=== PATIENT | female | born 1995 | race Caucasian/White ===

== ENCOUNTER 2018-11-14 16:40 | Inpatient (IN) | payer OTHER ==
[2018-11-14] MEDS ORDERED: PENICILLIN G POTASSIUM 5,000,000 UNIT in DEXTROSE 5%-WATER 100 ML IV ONE (16:53)
[2018-11-14 17:41] LABS: ABSOLUTE EOSINOPHILS # (AUTO) 0.1 10^3/uL (0.0-0.6); ABSOLUTE MONOCYTES (AUTO) 0.6 10^3/uL (0.1-1.4); ABSOLUTE NEUT (AUTO) 7.5 10^3/uL (1.7-8.2); BASOPHILS % (AUTO) 0.4 % (0-2); EOSINOPHILS % (AUTO) 1.2 % (0-6); HEMATOCRIT 34.2 % (36.0-47.0); HEMOGLOBIN 11.6 g/dL (12.0-15.5); LYMPHOCYTES % (AUTO) 19.7 % (13-45); MEAN CORPUSCULAR HEMOGLOBIN 29.3 pg (27.0-33.4); MEAN CORPUSCULAR VOLUME 86 fl (80-97); MONOCYTES % (AUTO) 5.9 % (3-13); PLATELET COUNT 291 10^3/uL (150-450); RED BLOOD COUNT 3.96 10^6/uL (3.72-5.28); RED CELL DISTRIBUTION WIDTH 17.7 % (11.5-14.0); SEGMENTED NEUTROPHILS % (AUTO) 72.8 % (42-78); TOTAL CELLS COUNTED % (AUTO) 100 %; WHITE BLOOD COUNT 10.3 10^3/uL (4.0-10.5)
[2018-11-14 17:48] LABS: APPEARANCE,URINE CLOUDY; BILIRUBIN,URINE NEGATIVE (NEGATIVE); COLOR,URINE AMBER; GLUCOSE, URINE NEGATIVE (NEGATIVE); KETONES,URINE TRACE mg/dL (NEGATIVE); LEUKOCYTE ESTERASE,URINE MODERATE (NEGATIVE); NITRITE,URINE NEGATIVE (NEGATIVE); PROTEIN,URINE 30 mg/dL (NEGATIVE); URINE SPECIFIC GRAVITY 1.019
[2018-11-14] MEDS ORDERED: PENICILLIN G-K 5 MILLION UNIT VIAL ONE ×2 (17:52→21:57)
[2018-11-14 18:03] LABS: URINE AMPHETAMINES SCREEN NEGATIVE; URINE BARBITURATES SCREEN NEGATIVE; URINE BENZODIAZEPINES SCREEN NEGATIVE; URINE COCAINE SCREEN NEGATIVE; URINE MARIJUANA (THC) SCREEN NEGATIVE; URINE METHADONE SCREEN NEGATIVE; URINE PHENCYCLIDINE SCREEN NEGATIVE
[2018-11-14] MEDS: RINGERS SOLUTION,LACTATED 1,000 ML IV PRN ×2 (18:09→22:19)
[2018-11-14] MEDS ORDERED: OXYTOCIN/NORMAL SALINE 20 UNIT/1,000 ML RTUINJ IV PRN (18:36)
[2018-11-14] MEDS ORDERED: MISOPROSTOL 0.2 MG TABLET ONE (18:38)
[2018-11-14] MEDS ORDERED: LIDOCAINE 1% INJ-PF (10 MG/ML) 30 ML SDV ONE (18:38)
[2018-11-14] MEDS ORDERED: OXYTOCIN/NORMAL SALINE 20 UNIT/1,000 ML RTUINJ ONE (18:38)
--- NOTE | 2018-11-14 20:21 | Admission Physical ---
Datetime Report Generated by CPN: 11/14/2018 20:21 CURRENT ADMISSION Chief Complaint Other: Premature Rupture of Membranes 24 hrs ago Indication for Induction: Not Applicable Admit Impression : Term, Intrauterine ; No Active Labor; Ruptured Membranes Admit Plan: Admit to Unit; Initiate Labor Augmentation Protocol ALLERGIES Medication Allergies: No Medication Allergies: No Known Allergies (11/14/2018) Latex: No Latex Allergies Food Allergies: none Environmental Allergies: none OBSTETRICAL HISTORY EDC: 11/13/2018 00:00 : 1 Para: 0 Gestational Diabetes: No Rh Sensitization: No Incompetent Cervix: No GRANT: No Infertility: No ART Treatment: No Uterine Anomaly: No IUGR: No Hx Previous C/S: No Macrosomia: No Hx Loss/Stillborn: No PIH: No Hx : No Placenta Previa/Abruption: No Depression/PP Depression: No PTL/PROM: No Post Hemorrhage: No Current Procedures: Ultrasound Obstetrical History Comments: G1- current SEE RECORDS Alcohol: No Marijuana : No Cocaine: No Other Illicit Drugs: No Cigarettes: Never Smoker. [id number] MEDICAL HISTORY Diabetes: No Blood Transfusion: No Pulmonary Disease (Asthma, TB): No Breast Disease: No Hypertension: No Billet Checker Surgery: No Heart Disease: No Hosp/Surgery: Yes Autoimmune Disorder: No Anesthetic Complications: No Kidney Disease: No Abnormal Pap Smear: No Neuro/Epilepsy: No Psychiatric Disorders: Yes Other Medical Diseases: No Hepatitis/Liver Disease: No Significant Family History: No Varicosities/Phlebitis: No Trauma/Violence : No Thyroid Dysfunction: Yes Medical History Comments: hypothyroidism- synthroid, gastric sleeve, T_A, wisdoms, obesity, anemia INFECTIOUS HISTORY Gonorrhea: No Genital Herpes: No Chlamydia: No Tuberculosis: No Syphilis: No Hepatitis: No HIV/AIDS Exposure: No Rash or Viral Illness: No HPV: No PHYSICAL EXAM General: Normal HEENT: Normal Neurologic: Normal Thyroid: Normal Heart: Normal Lungs: Normal Breast: Normal Back: Normal Abdomen: Normal Genitourinary Exam: Normal Extremities: Normal DTRs: Normal Pelvic Type: Adequate Vital Signs: Reviewed; Within Normal Limits VAGINAL EXAM Dilatation: 2 Effacement: thick Station: -3 Contraction Comments: irregular MEMBRANES Membranes: Ruptured Amniotic Fluid Color: Clear FETUS A Monitoring: External US FHR- Baseline: 140s Variability: Moderate 6-25bpm Accelerations: 15X15 Decelerations: None FHR Category: Category I Admit Comment: This 23 year old presents to L_D with PROM x 24 hrs, after being considered a failure to start spontaneous labor, with the management of her Corrections Corporal. This pt is GBS Pos and declined antibiotics with the Corrections Corporal. She is afebrile. She has agreed to allow us to start antibiotics. Her cervix is 2/thick/-3. After arriving, the pt was counseled and she decided that she would allow antibiotics and pitocin. The Skate Maker will return when she is in active labor. I counseled her about declining Vit K and erythromycin. I believe that she has changed her mind. The rest of her family believes that she should have them administered to the . PLANS FOR LABOR AND DELIVERY Labor and Delivery: Other, Specify Pain Management: Natural Feeding Preference: Breast Benefit of Breast Feed Discussed: Yes Circumcision: N/A INFORMED CONSENT Signature: with User ID: [email or web address]
[2018-11-14] MEDS: PENICILLIN G POTASSIUM 2,500,000 UNIT in DEXTROSE 5%-WATER 50 ML IV SCH (22:13)
[2018-11-15] MEDS ORDERED: PENICILLIN G-K 5 MILLION UNIT VIAL ONE ×3 (02:07→09:43)
[2018-11-15] MEDS: PENICILLIN G POTASSIUM 2,500,000 UNIT in DEXTROSE 5%-WATER 50 ML IV SCH ×4 (02:21→16:18)
[2018-11-15] MEDS ORDERED: EPHEDRINE SULFATE INJ 50 MG/1 ML AMPULE ONE (02:27)
[2018-11-15] MEDS ORDERED: FENTANYL/BUPIVACAINE/NS/PF 300 MCG/150 ML RTUINJ EPI ONE (02:28)
[2018-11-15] MEDS ORDERED: BUPIVACAINE HCL 0.25 % INJ/PF (2.5 MG/1 ML) 30 ML VIAL ONE (02:28)
[2018-11-15] MEDS ORDERED: FENTANYL CITRATE INJ/PF 100 MCG/2 ML AMPUL ONE (02:28)
[2018-11-15] MEDS ORDERED: PHENYLEPHRINE HCL INJ/PF 10 MG/1 ML SDV ONE (02:28)
[2018-11-15] MEDS: RINGERS SOLUTION,LACTATED 1,000 ML IV PRN ×2 (05:30→08:05)
[2018-11-15] MEDS: LEVOTHYROXINE SODIUM 0.025 MG TABLET PO SCH ×2 (09:10→16:17)
[2018-11-15] MEDS ORDERED: DIPH/PERTUSS(ACELL)/TETANUS VAC/PF 0.5 ML SYR (>=10YO) IM PRN (14:51)
[2018-11-15] MEDS ORDERED: BENZOCAINE/MENTHOL AEROSOL SPRAY 56 ML TOP PRN (14:51)
[2018-11-15] MEDS ORDERED: DIBUCAINE 1% OINTMENT 56 GM TP PRN (14:51)
[2018-11-15] MEDS ORDERED: MEASLES,MUMPS&RUBELLA VACC/PF 0.5 ML VIAL SUBCUT PRN (14:51)
[2018-11-15] MEDS ORDERED: ZOLPIDEM TARTRATE 5 MG TABLET PO PRN (14:51)
[2018-11-15] MEDS ORDERED: OXYTOCIN/NORMAL SALINE 20 UNIT/1,000 ML RTUINJ IV PRN (14:51)
--- NOTE | 2018-11-15 16:45 | Delivery Summary ---
Del Sum A-C Datetime Report Generated by CPN: 11/15/2018 16:44 DELIVERY PERSONNEL DELIVERY PERSONNEL: [id number] Delivery Doctor:: Viviana Ariza MD Labor and Delivery Nurse:: Ninfa Pittman RN Edge Stainer:: Micheline Robles, RNC Nurse Practitioner:: CURLY Ravi Nursery Nurse:: Lc Chow RN MATERNAL INFORMATION Delivery Anesthesia: Epidural Medications After Delivery: Pitocin Drip 20 Units/1000ml NSS; Cytotec 1000mcg Per Rectum/Vagina Estimated Blood Loss (ml): 400 ml Maternal Complications: Other Complication Details: prolonged rupture prom Provider Comments: of a viable female at 1418 w/ an SON w/nuchal cord x 1 and right compound hand presentation; APGARS 8, 9; 2nd degree vaginal lac LABOR SUMMARY EDC: 11/13/2018 00:00 No. Babies in Womb: 1 Attempted: No Labor Anesthesia: Epidural LABOR INFORMATION Reason for Induction: Not Applicable Onset of Labor: 11/13/2018 17:30 Complete Dilatation: 11/15/2018 13:08 Oxytocin: Augmentation Group B Beta Strep: POSITIVE Antibiotics # of Doses: 5 Antibiotics Time of Last Dose: 1002 Name of Antibiotic Given: PCN Steroids Given: None Reason Steroids Not Administered: Not Applicable MEMBRANES Membranes Rupture Method: Spontaneous Rupture of Membranes: 11/13/2018 17:30 Length of Rupture (hr): 44.80 Amniotic Fluid Color: Clear Amniotic Fluid Amount: Small Amniotic Fluid Odor: Normal STAGES OF LABOR Stage 1 hr: 43 Stage 1 min: 38 Stage 2 hr: 1 Stage 2 min: 10 Stage 3 hr: 0 Stage 3 min: 6 Total Time in Labor hr: 44 Total Time in Labor min: 54 VAGINAL DELIVERY Episiotomy: None Laceration #1: Vaginal Laceration Extension #1: Second Degree Laceration Repair: Yes Laceration Repair Note: Repaired w/ 2-0 Vicryl Sponge Count Correct: Yes Sharps Count Correct: Yes CSECTION DELIVERY Primary Indication: N/A Secondary Indication: N/A CSection Incidence: N/A Labor: N/A Elective: N/A CSection Incision: N/A BABY A INFORMATION Delivery Date/Time: 11/15/2018 14:18 Method of Delivery: Vaginal Born in Route : No : N/A Forceps: N/A Vacuum Extraction: N/A Shoulder Dystocia : No PRESENTATION/POSITION BABY A Presentation: Cephalic Cephalic Presentation: Vertex Vertex Position: Right Occipital Anterior Breech Presentation: N/A PLACENTA INFORMATION BABY A Placenta Delivery Time : 11/15/2018 14:24 Placenta Method of Delivery: Spontaneous Placenta Status: Delivered SCORES BABY A Heart Rate 1 min: >100 bpm Resp Effort 1 min: Good Cry Reflex Irritability 1 min: Cough or Sneeze or Pulls Away Muscle Tone 1 min: Active Motion Color 1 min: Blue/Pale Resuscitation Effort 1 min: Tactile Stimulation SCORE 1 MIN: 8 Heart Rate 5 min: >100 bpm Resp Effort 5 min: Good Cry Reflex Irritability 5 min: Cough or Sneeze or Pulls Away Muscle Tone 5 min: Active Motion Color 5 min: Body Endeavor, Extremities Blue SCORE 5 MIN: 9 INFANT INFORMATION BABY A Gestational Age at Delivery: 40.2 Gestational Status: Full Term- 39- 40.6 Weeks Infant Outcome : Liveborn Condition : Stable Infant Sex: Female IDENTIFICATION BABY A Verification Date/Time: 11/15/2018 15:28 ID Band Number: [id number] Mother's Name Verified: Yes RN Verifying Infant: D Bellavance RN/R Louise RN WEIGHT/LENGTH BABY A Birthweight (gm): 2911 Infant Weight (lb): 6 Infant Weight (oz): 7 Infant Length (in): 19.00 Infant Length (cm): 48.26 CORD INFORMATION BABY A No. Cord Vessels: 3 Nuchal Cord : Around Neck x1, Loose Nuchal Cord- Other: right compound hand Cord Blood Taken: Yes-For Storage (Mom's Blood type +) Suction: Mouth; Nose ASSESSMENT BABY A Infant Complications: None Physical Findings at Delivery: Molding of the Head Infant Respirations: Appears Normal Skin to Skin: Yes Skin to Skin Time (min): 60 Aquatics Instructor/ALS Called : No Infant Care By: Vick Geraldo RN Transferred To: Remains with Mother BABY B INFORMATION : N/A SIGNATURES Signature: with User ID: [email or web address]
[2018-11-15] MEDS ORDERED: ACETAMINOPHEN 325 MG TABLET PO PRN (18:11)
[2018-11-15] MEDS: FERROUS SULFATE 325 MG TABLET PO SCH (18:32)
[2018-11-15] MEDS: DOCUSATE SODIUM 100 MG CAPSULE PO SCH (18:32)
[2018-11-15] MEDS: IBUPROFEN 800 MG TABLET PO SCH (21:03)
[2018-11-15] MEDS: ACETAMINOPHEN WITH CODEINE #3 TABLET PO PRN (23:29)
[2018-11-16] MEDS: ACETAMINOPHEN WITH CODEINE #3 TABLET PO PRN ×2 (04:14→23:42)
[2018-11-16] MEDS: IBUPROFEN 800 MG TABLET PO SCH ×3 (05:10→21:01)
[2018-11-16 07:47] LABS: HEMOGLOBIN 10.5 g/dL (12.0-15.5); MEAN CORPUSCULAR HEMOGLOBIN 29.8 pg (27.0-33.4); MEAN CORPUSCULAR HGB CONC 33.9 g/dL (32.0-36.0); MEAN CORPUSCULAR VOLUME 88 fl (80-97); PLATELET COUNT 228 10^3/uL (150-450); RED BLOOD COUNT 3.52 10^6/uL (3.72-5.28); RED CELL DISTRIBUTION WIDTH 17.3 % (11.5-14.0); WHITE BLOOD COUNT 10.8 10^3/uL (4.0-10.5)
--- NOTE | 2018-11-16 08:56 | PDOC PROGRESS REPORT ---
Subjective-OB Progress Note for:: 11/16/18 Subjective: Doing well, no c/o,, c/o of uterine cramping, scant bleeding, hsb at bs Physical Exam (OB) Vital Signs: Temp Pulse Resp BP Pulse Ox 97.5 F 94 18 116/68 97 11/15/18 19:40 11/15/18 19:40 11/15/18 19:40 11/15/18 19:40 11/15/18 19:40 Intake & Output 11/15/18 11/16/18 11/17/18 06:59 06:59 06:59 Intake Total 1671 373 Balance 1671 373 Weight 125.1 kg - PIH/Pre-Eclampsia Headache: Absent Epigastric Pain: No Visual Changes: No - Lochia Lochia Amount: Scant < 10 ml Lochia Color: Rubra/Red - Abdomen Description: Tender, Soft Hernia Present: No Fundal Description: Firm, Midline Fundal Height: u/u - u/2 Objective-Diagnostic Laboratory: 11/16/18 07:11 11/16/18 07:11 WBC 10.8 H RBC 3.52 L Hgb 10.5 L Hct 31.0 L MCV 88 MCH 29.8 MCHC 33.9 RDW 17.3 H Plt Count 228 Assessment and Plan(PN) - Assessment and Plan (1) history of gastric sleeve Is this a current diagnosis for this admission?: Yes (2) Obstetric vaginal laceration with second degree perineal laceration Is this a current diagnosis for this admission?: Yes (3) Hypothyroid Qualifiers: Hypothyroidism type: unspecified Qualified Code(s): E03.9 - Hypothyroidism, unspecified Is this a current diagnosis for this admission?: Yes (4) Delivery normal Is this a current diagnosis for this admission?: Yes (5) GBS (group B Streptococcus carrier), +RV culture, currently Is this a current diagnosis for this admission?: Yes - Time Spent with Patient Time with patient: Less than 15 minutes Medications reviewed and adjusted accordingly: Yes - Disposition Anticipated Discharge: Home Within: within 24 hours
[2018-11-16] MEDS: DOCUSATE SODIUM 100 MG CAPSULE PO SCH ×2 (10:54→17:22)
[2018-11-16] MEDS: SENNOSIDES/DOCUSATE 8.6-50 MG 1 EACH TABLET PO SCH (10:54)
[2018-11-16] MEDS: LEVOTHYROXINE SODIUM 0.025 MG TABLET PO SCH (10:54)
[2018-11-16] MEDS: FERROUS SULFATE 325 MG TABLET PO SCH ×2 (10:54→17:22)
[2018-11-16] MEDS: PRENATAL VITAMIN W DHA CAPSULE PO SCH (10:54)
[2018-11-17] MEDS: ACETAMINOPHEN WITH CODEINE #3 TABLET PO PRN ×2 (04:15→13:07)
[2018-11-17] MEDS: IBUPROFEN 800 MG TABLET PO SCH ×2 (05:14→13:06)
[2018-11-17 08:57] VITALS: BP 135/68
[2018-11-17] MEDS: FERROUS SULFATE 325 MG TABLET PO SCH ×2 (09:03→17:24)
[2018-11-17] MEDS: DOCUSATE SODIUM 100 MG CAPSULE PO SCH ×2 (09:03→17:24)
[2018-11-17] MEDS: LEVOTHYROXINE SODIUM 0.025 MG TABLET PO SCH (09:03)
[2018-11-17] MEDS: PRENATAL VITAMIN W DHA CAPSULE PO SCH (09:03)
[2018-11-17] MEDS: SENNOSIDES/DOCUSATE 8.6-50 MG 1 EACH TABLET PO SCH (09:03)
--- NOTE | 2018-11-17 10:34 | PDOC DISCHARGE SUMMARY ---
Final Diagnosis Discharge Date: 11/17/18 - Final Diagnosis (1) PROM (premature rupture of membranes) Is this a current diagnosis for this admission?: Yes (2) Delivery normal Is this a current diagnosis for this admission?: Yes (3) Obstetric vaginal laceration with second degree perineal laceration Is this a current diagnosis for this admission?: Yes Discharge Data - Discharge Medication Prescriptions: Ibuprofen [Motrin 800 mg Tablet] 800 mg PO Q8HP PRN #60 tablet PRN Reason: Home Medications: Vit,Calc76/Iron/Folic [Prenatabs Rx Tablet] 1 tab PO DAILY 11/14/18 Ibuprofen [Motrin 800 mg Tablet] 800 mg PO Q8HP PRN #60 tablet 11/17/18 Reason(s) for Admission: Induction of Labor Procedures: NST Intrapartum Procedure(s): Spontaneous Vaginal Delivery Complication(s): Laceration-Perineal Laceration-Degree: 2nd - Diagnosis Test Laboratory: Temp Pulse Resp BP Pulse Ox 98.0 F 84 18 135/68 H 100 11/17/18 08:21 11/17/18 08:21 11/17/18 08:21 11/17/18 08:21 11/17/18 08:21 11/14/18 11/14/18 11/16/18 17:15 17:24 07:11 RBC 3.96 3.52 L Hgb 11.6 L 10.5 L Hct 34.2 L 31.0 L Urine Opiates Screen NEGATIVE - Discharge information/Instructions Discharge Activity: Balance Activity w/Rest, Pelvic Rest Discharge Diet: Regular Disposition: HOME, SELF-CARE Follow up with: [facility] - or your OB care provider in: 1, 4, Days, Weeks
== END 2018-11-17 18:12 | disposition home or self-care (01) | DRG 807 ==
LOC: LC 16:40 → LR 16:44 → 2S 11-15 16:57
PROVIDERS: ADMIT Obstetrics & Gynecology; ATTEND Obstetrics & Gynecology
PROC: 10E0XZZ Delivery of Products of Conception, External Approach (ICD-10-PCS; principal; 2018-11-15)
PROC: 0KQM0ZZ Repair Perineum Muscle, Open Approach (ICD-10-PCS; 2018-11-15)
DX: O42.12 Full-term premature rupture of membranes, onset of labor more than 24 hours following rupture (principal); Z37.0 Single live birth; O99.824 Streptococcus B carrier state complicating childbirth; P02.5 Newborn affected by other compression of umbilical cord; O70.1 Second degree perineal laceration during delivery; O32.6XX0 Maternal care for compound presentation, not applicable or unspecified; E03.9 Hypothyroidism, unspecified; O99.284 Endocrine, nutritional and metabolic diseases complicating childbirth; Z3A.40 40 weeks gestation of pregnancy; Z98.84 Bariatric surgery status; Z79.890 Hormone replacement therapy
CPT/HCPCS: 36415; 80307; 81005; 85025; 85027; 86592; 86850; 86900; 86901; 94760; J2370; J2540; J2590; J3010; J3490